=== PATIENT | female | born 1955 | race African-American/Black ===

== ENCOUNTER 2021-09-09 10:15 | Inpatient (IN) | payer MEDICARE, OTHER ==
[2021-09-09 12:10] VITALS: BMI 16.9
[2021-09-09] MEDS ORDERED: MAGNESIUM CITRATE 300 ML BOTTLE PO PRN (12:32)
[2021-09-09] MEDS ORDERED: ACETAMINOPHEN 325 MG TABLET (FP) PO PRN (12:32)
[2021-09-09] MEDS ORDERED: LOPERAMIDE HCL 2 MG CAPSULE PO PRN (12:32)
[2021-09-09] MEDS ORDERED: P-EPHED 60MG/TRIPROLIDI 2.5MG TABLET PO PRN (12:32)
[2021-09-09] MEDS ORDERED: NICOTINE 10 MG CARTRIDGE (INHALER) IH PRN (12:32)
[2021-09-09] MEDS ORDERED: MAGNESIUM HYDROX 2400MG/30ML ORAL SUSPENSION 30 ML CUP PO PRN (12:32)
[2021-09-09] MEDS ORDERED: MAG HYDROX/AL HYDROX/SIMETH 30 ML UNIT-DOSE CUP PO PRN (12:32)
[2021-09-09] MEDS ORDERED: guaiFENesin 200 MG/10 ML 10 ML UNIT-DOSE CUPS PO PRN (12:32)
[2021-09-09] MEDS ORDERED: amLODIPine BESYLATE 10 MG TABLET (FP) PO ONE (20:13)
[2021-09-09] MEDS: SENNOSIDES 8.6MG TABLET (FP) PO SCH (21:41)
[2021-09-09] MEDS: hydrOXYzine PAMOATE 25 MG CAPSULE (FP) PO SCH ×3 (21:41→22:19)
[2021-09-09] MEDS: THIAMINE HCL 100 MG TABLET (FP) PO SCH (21:41)
[2021-09-09] MEDS: MELATONIN 5 MG TABLETS PO SCH (21:41)
[2021-09-09] MEDS: ATORVASTATIN CA 10 MG TABLET (FP) PO SCH (21:44)
[2021-09-10] MEDS: hydrOXYzine PAMOATE 25 MG CAPSULE (FP) PO SCH ×3 (06:55→13:25)
[2021-09-10] MEDS ORDERED: methaDONE HCL 40 MG DISPERSABLE TABLET PO ONE (09:08)
[2021-09-10] MEDS: amLODIPine BESYLATE 10 MG TABLET (FP) PO SCH (10:16)
[2021-09-10] MEDS: ASPIRIN COATED 81 MG TABLET.EC PO SCH (10:16)
[2021-09-10] MEDS: PRENATAL VITAMINS W/ FOLIC ACID TABLET (FP) PO SCH (10:17)
[2021-09-10] MEDS: NICOTINE 7 MG/24 HOURS TOPICAL PATCH TD SCH (10:18)
[2021-09-10 12:26] LABS: CALCIUM 9.5 mg/dL (8.5-10.1)
[2021-09-10 12:27] LABS: ALBUMIN 3.6 g/dl (3.4-5.0); CO2 32 mmol/L (21-32); GLUCOSE,RANDOM 110 mg/dL (74-106)
[2021-09-10 12:30] LABS: ANION GAP 3 MMOL/L (8-16); CHLORIDE 107 mmol/L (98-107); CREATININE 0.9 mg/dL (0.55-1.3); SGOT/AST < 3 U/L (15-37); SGPT/ALT 13 U/L (13-61); SODIUM 142 mmol/L (136-145)
[2021-09-10 12:31] LABS: BILIRUBIN,TOTAL 0.3 mg/dL (0.2-1); TOT PROT 7.2 g/dl (6.4-8.2)
[2021-09-10 12:33] LABS: ALK PHOS 87 U/L (45-117)
[2021-09-10 12:53] LABS: SYPHILIS W/ RPR CONF NON-REACTIVE (NONREACTIVE)
[2021-09-10 13:20] LABS: HEMATOCRIT 36.2 % (32.4-45.2); HEMOGLOBIN 12.1 GM/dL (10.7-15.3); MCH 30.6 pg (25.7-33.7); MCHC 33.5 g/dl (32.0-36.0); MEAN CELL VOLUME 91.6 fl (80-96); MEAN PLT VOLUME 8.3 fl (7.5-11.1); PLATELET COUNT 161 10^3/uL (134-434); RBC 3.96 M/mm3 (3.60-5.2); RDW 14.4 % (11.6-15.6); WHITE BLOOD COUNT 4.6 K/mm3 (4.0-10.0)
[2021-09-10 21:45] LABS: EPI CELLS >36 /uL (0-25.1); HYALINE CASTS 1 /uL (0-3.1); URINE APPEARANCE CLOUDY; URINE BACTERIA 615 /uL (0-1359); URINE BILIRUBIN NEGATIVE (NEGATIVE); URINE COLOR YELLOW; URINE GLUCOSE (UA) NEGATIVE (NEGATIVE); URINE KETONE NEGATIVE (NEGATIVE); URINE LEUK ESTERASE TRACE (NEGATIVE); URINE NITRITE NEGATIVE (NEGATIVE); URINE PROTEIN NEGATIVE (NEGATIVE); URINE RBC 4 /uL (0-23.9); URINE UROBILINOGEN 0.2 mg/dL (0.2-1.0); URINE WBC 43 /uL (0-25.8)
[2021-09-10] MEDS: ATORVASTATIN CA 10 MG TABLET (FP) PO SCH (21:54)
[2021-09-10] MEDS: cloNIDine HCL 0.1 MG TABLET PO PRN (21:54)
[2021-09-10] MEDS: THIAMINE HCL 100 MG TABLET (FP) PO SCH (21:55)
[2021-09-10] MEDS: MELATONIN 5 MG TABLETS PO SCH (21:55)
[2021-09-10] MEDS: SENNOSIDES 8.6MG TABLET (FP) PO SCH (23:11)
[2021-09-11] MEDS: methaDONE HCL 40 MG DISPERSABLE TABLET PO SCH (06:28)
[2021-09-11] MEDS: amLODIPine BESYLATE 10 MG TABLET (FP) PO SCH (11:26)
[2021-09-11] MEDS: NICOTINE 7 MG/24 HOURS TOPICAL PATCH TD SCH (11:26)
[2021-09-11] MEDS: ASPIRIN COATED 81 MG TABLET.EC PO SCH (11:26)
[2021-09-11] MEDS: PRENATAL VITAMINS W/ FOLIC ACID TABLET (FP) PO SCH (11:27)
[2021-09-11] MEDS: MELATONIN 5 MG TABLETS PO SCH (21:09)
[2021-09-11] MEDS: THIAMINE HCL 100 MG TABLET (FP) PO SCH (21:09)
[2021-09-11] MEDS: ATORVASTATIN CA 10 MG TABLET (FP) PO SCH (21:09)
[2021-09-11] MEDS: SENNOSIDES 8.6MG TABLET (FP) PO SCH (22:14)
[2021-09-12] MEDS: methaDONE HCL 40 MG DISPERSABLE TABLET PO SCH (06:25)
[2021-09-12] MEDS: PRENATAL VITAMINS W/ FOLIC ACID TABLET (FP) PO SCH (10:20)
[2021-09-12] MEDS: ASPIRIN COATED 81 MG TABLET.EC PO SCH (10:20)
[2021-09-12] MEDS: NICOTINE 7 MG/24 HOURS TOPICAL PATCH TD SCH (10:20)
[2021-09-12] MEDS: amLODIPine BESYLATE 10 MG TABLET (FP) PO SCH (10:20)
[2021-09-12] MEDS: ATORVASTATIN CA 10 MG TABLET (FP) PO SCH (21:42)
[2021-09-12] MEDS: THIAMINE HCL 100 MG TABLET (FP) PO SCH (21:42)
[2021-09-12] MEDS: MELATONIN 5 MG TABLETS PO SCH (21:42)
[2021-09-12] MEDS: SENNOSIDES 8.6MG TABLET (FP) PO SCH (21:43)
[2021-09-13] MEDS: methaDONE HCL 40 MG DISPERSABLE TABLET PO SCH (06:26)
[2021-09-13] MEDS: PRENATAL VITAMINS W/ FOLIC ACID TABLET (FP) PO SCH (10:21)
[2021-09-13] MEDS: NICOTINE 7 MG/24 HOURS TOPICAL PATCH TD SCH (10:22)
[2021-09-13] MEDS: ASPIRIN COATED 81 MG TABLET.EC PO SCH (10:22)
[2021-09-13] MEDS: amLODIPine BESYLATE 10 MG TABLET (FP) PO SCH (10:22)
[2021-09-13] MEDS: NICOTINE POLACRILEX 2 MG GUM BUC PRN (10:23)
[2021-09-13] MEDS: IBUPROFEN 400 MG TABLET (FP) PO PRN (19:58)
[2021-09-13] MEDS: MELATONIN 5 MG TABLETS PO SCH (21:38)
[2021-09-13] MEDS: THIAMINE HCL 100 MG TABLET (FP) PO SCH (21:38)
[2021-09-13] MEDS: SENNOSIDES 8.6MG TABLET (FP) PO SCH (21:38)
[2021-09-13] MEDS: ATORVASTATIN CA 10 MG TABLET (FP) PO SCH (21:38)
[2021-09-13] MEDS: cloNIDine HCL 0.1 MG TABLET PO PRN (21:39)
[2021-09-14] MEDS: methaDONE HCL 40 MG DISPERSABLE TABLET PO SCH (06:09)
[2021-09-14] MEDS: PRENATAL VITAMINS W/ FOLIC ACID TABLET (FP) PO SCH (10:26)
[2021-09-14] MEDS: ASPIRIN COATED 81 MG TABLET.EC PO SCH (10:26)
[2021-09-14] MEDS: NICOTINE 7 MG/24 HOURS TOPICAL PATCH TD SCH (10:26)
[2021-09-14] MEDS: amLODIPine BESYLATE 10 MG TABLET (FP) PO SCH (10:26)
[2021-09-14] MEDS: NICOTINE POLACRILEX 2 MG GUM BUC PRN (10:28)
[2021-09-14] MEDS: IBUPROFEN 400 MG TABLET (FP) PO PRN (18:15)
[2021-09-14] MEDS: ATORVASTATIN CA 10 MG TABLET (FP) PO SCH (21:39)
[2021-09-14] MEDS: SENNOSIDES 8.6MG TABLET (FP) PO SCH (21:39)
[2021-09-14] MEDS: THIAMINE HCL 100 MG TABLET (FP) PO SCH (21:39)
[2021-09-14] MEDS: MELATONIN 5 MG TABLETS PO SCH (21:40)
[2021-09-14] MEDS: hydrOXYzine PAMOATE 25 MG CAPSULE (FP) PO PRN (22:56)
[2021-09-15] MEDS: methaDONE HCL 40 MG DISPERSABLE TABLET PO SCH (06:29)
[2021-09-15] MEDS: cloNIDine HCL 0.1 MG TABLET PO PRN (06:31)
[2021-09-15] MEDS: NICOTINE 7 MG/24 HOURS TOPICAL PATCH TD SCH (09:39)
[2021-09-15] MEDS: ASPIRIN COATED 81 MG TABLET.EC PO SCH (09:39)
[2021-09-15] MEDS: NICOTINE POLACRILEX 2 MG GUM BUC PRN (09:40)
[2021-09-15] MEDS: PRENATAL VITAMINS W/ FOLIC ACID TABLET (FP) PO SCH (09:40)
[2021-09-15] MEDS: amLODIPine BESYLATE 10 MG TABLET (FP) PO SCH (14:41)
[2021-09-15] MEDS: SENNOSIDES 8.6MG TABLET (FP) PO SCH (21:44)
[2021-09-15] MEDS: THIAMINE HCL 100 MG TABLET (FP) PO SCH (21:44)
[2021-09-15] MEDS: ATORVASTATIN CA 10 MG TABLET (FP) PO SCH (21:44)
[2021-09-15] MEDS: MELATONIN 5 MG TABLETS PO SCH (21:44)
[2021-09-15] MEDS: IBUPROFEN 400 MG TABLET (FP) PO PRN (21:46)
[2021-09-16] MEDS: methaDONE HCL 40 MG DISPERSABLE TABLET PO SCH (06:20)
[2021-09-16] MEDS: PRENATAL VITAMINS W/ FOLIC ACID TABLET (FP) PO SCH (10:43)
[2021-09-16] MEDS: ASPIRIN COATED 81 MG TABLET.EC PO SCH (10:43)
[2021-09-16] MEDS: NICOTINE 7 MG/24 HOURS TOPICAL PATCH TD SCH (10:44)
[2021-09-16] MEDS: amLODIPine BESYLATE 10 MG TABLET (FP) PO SCH (13:51)
[2021-09-16] MEDS: MELATONIN 5 MG TABLETS PO SCH (21:11)
[2021-09-16] MEDS: SENNOSIDES 8.6MG TABLET (FP) PO SCH (21:11)
[2021-09-16] MEDS: ATORVASTATIN CA 10 MG TABLET (FP) PO SCH (21:11)
[2021-09-16] MEDS: THIAMINE HCL 100 MG TABLET (FP) PO SCH (21:13)
[2021-09-17] MEDS: cloNIDine HCL 0.1 MG TABLET PO PRN (06:15)
[2021-09-17] MEDS: methaDONE HCL 40 MG DISPERSABLE TABLET PO SCH (06:16)
[2021-09-17] MEDS: PRENATAL VITAMINS W/ FOLIC ACID TABLET (FP) PO SCH (10:23)
[2021-09-17] MEDS: ASPIRIN COATED 81 MG TABLET.EC PO SCH (10:24)
[2021-09-17] MEDS: NICOTINE 7 MG/24 HOURS TOPICAL PATCH TD SCH (10:24)
[2021-09-17] MEDS: amLODIPine BESYLATE 10 MG TABLET (FP) PO SCH (14:27)
[2021-09-17] MEDS: THIAMINE HCL 100 MG TABLET (FP) PO SCH (21:12)
[2021-09-17] MEDS: ATORVASTATIN CA 10 MG TABLET (FP) PO SCH (21:12)
[2021-09-17] MEDS: SENNOSIDES 8.6MG TABLET (FP) PO SCH (21:12)
[2021-09-17] MEDS: MELATONIN 5 MG TABLETS PO SCH (21:12)
[2021-09-18] MEDS: methaDONE HCL 40 MG DISPERSABLE TABLET PO SCH (06:10)
[2021-09-18] MEDS: NICOTINE 7 MG/24 HOURS TOPICAL PATCH TD SCH (09:54)
[2021-09-18] MEDS: amLODIPine BESYLATE 10 MG TABLET (FP) PO SCH (09:54)
[2021-09-18] MEDS: ASPIRIN COATED 81 MG TABLET.EC PO SCH (09:54)
[2021-09-18] MEDS: PRENATAL VITAMINS W/ FOLIC ACID TABLET (FP) PO SCH (09:54)
[2021-09-18] MEDS: NICOTINE POLACRILEX 2 MG GUM BUC PRN (09:55)
[2021-09-18] MEDS: ATORVASTATIN CA 10 MG TABLET (FP) PO SCH (21:11)
[2021-09-18] MEDS: SENNOSIDES 8.6MG TABLET (FP) PO SCH (21:11)
[2021-09-18] MEDS: IBUPROFEN 400 MG TABLET (FP) PO PRN (21:11)
[2021-09-18] MEDS: THIAMINE HCL 100 MG TABLET (FP) PO SCH (21:11)
[2021-09-18] MEDS: hydrOXYzine PAMOATE 25 MG CAPSULE (FP) PO PRN (21:11)
[2021-09-18] MEDS: MELATONIN 5 MG TABLETS PO SCH (21:57)
[2021-09-19] MEDS: methaDONE HCL 40 MG DISPERSABLE TABLET PO SCH (06:13)
[2021-09-19] MEDS: PRENATAL VITAMINS W/ FOLIC ACID TABLET (FP) PO SCH (10:18)
[2021-09-19] MEDS: amLODIPine BESYLATE 10 MG TABLET (FP) PO SCH (10:18)
[2021-09-19] MEDS: ASPIRIN COATED 81 MG TABLET.EC PO SCH (10:18)
[2021-09-19] MEDS: NICOTINE 7 MG/24 HOURS TOPICAL PATCH TD SCH (10:19)
[2021-09-19] MEDS: MELATONIN 5 MG TABLETS PO SCH (21:08)
[2021-09-19] MEDS: SENNOSIDES 8.6MG TABLET (FP) PO SCH (21:08)
[2021-09-19] MEDS: hydrOXYzine PAMOATE 25 MG CAPSULE (FP) PO PRN (21:08)
[2021-09-19] MEDS: ATORVASTATIN CA 10 MG TABLET (FP) PO SCH (21:08)
[2021-09-19] MEDS: THIAMINE HCL 100 MG TABLET (FP) PO SCH (21:08)
[2021-09-19] MEDS: IBUPROFEN 400 MG TABLET (FP) PO PRN (21:09)
[2021-09-20] MEDS: methaDONE HCL 40 MG DISPERSABLE TABLET PO SCH (06:11)
[2021-09-20] MEDS: cloNIDine HCL 0.1 MG TABLET PO PRN (06:12)
[2021-09-20] MEDS: NICOTINE 7 MG/24 HOURS TOPICAL PATCH TD SCH (09:50)
[2021-09-20] MEDS: PRENATAL VITAMINS W/ FOLIC ACID TABLET (FP) PO SCH (09:50)
[2021-09-20] MEDS: ASPIRIN COATED 81 MG TABLET.EC PO SCH (09:50)
[2021-09-20] MEDS: NICOTINE POLACRILEX 2 MG GUM BUC PRN (09:52)
[2021-09-20] MEDS: amLODIPine BESYLATE 10 MG TABLET (FP) PO SCH ×2 (09:52→15:59)
[2021-09-20] MEDS: SENNOSIDES 8.6MG TABLET (FP) PO SCH (21:10)
[2021-09-20] MEDS: MELATONIN 5 MG TABLETS PO SCH (21:10)
[2021-09-20] MEDS: THIAMINE HCL 100 MG TABLET (FP) PO SCH (21:10)
[2021-09-20] MEDS: ATORVASTATIN CA 10 MG TABLET (FP) PO SCH (21:10)
[2021-09-21] MEDS: cloNIDine HCL 0.1 MG TABLET PO PRN (06:07)
[2021-09-21] MEDS: methaDONE HCL 40 MG DISPERSABLE TABLET PO SCH (06:07)
[2021-09-21] MEDS: NICOTINE 7 MG/24 HOURS TOPICAL PATCH TD SCH (10:21)
[2021-09-21] MEDS: PRENATAL VITAMINS W/ FOLIC ACID TABLET (FP) PO SCH (10:21)
[2021-09-21] MEDS: ASPIRIN COATED 81 MG TABLET.EC PO SCH (10:21)
[2021-09-21] MEDS: NICOTINE POLACRILEX 2 MG GUM BUC PRN (10:22)
[2021-09-21] MEDS: amLODIPine BESYLATE 10 MG TABLET (FP) PO SCH (10:30)
[2021-09-21] MEDS: MELATONIN 5 MG TABLETS PO SCH (21:11)
[2021-09-21] MEDS: THIAMINE HCL 100 MG TABLET (FP) PO SCH (21:11)
[2021-09-21] MEDS: SENNOSIDES 8.6MG TABLET (FP) PO SCH (21:11)
[2021-09-21] MEDS: ATORVASTATIN CA 10 MG TABLET (FP) PO SCH (21:11)
[2021-09-21] MEDS: hydrOXYzine PAMOATE 25 MG CAPSULE (FP) PO PRN (21:12)
[2021-09-22] MEDS: methaDONE HCL 40 MG DISPERSABLE TABLET PO SCH (06:19)
[2021-09-22] MEDS: PRENATAL VITAMINS W/ FOLIC ACID TABLET (FP) PO SCH (09:43)
[2021-09-22] MEDS: ASPIRIN COATED 81 MG TABLET.EC PO SCH (09:43)
[2021-09-22] MEDS: NICOTINE 7 MG/24 HOURS TOPICAL PATCH TD SCH (09:43)
[2021-09-22] MEDS: amLODIPine BESYLATE 10 MG TABLET (FP) PO SCH (09:44)
[2021-09-22] MEDS: MELATONIN 5 MG TABLETS PO SCH (21:26)
[2021-09-22] MEDS: THIAMINE HCL 100 MG TABLET (FP) PO SCH (21:26)
[2021-09-22] MEDS: ATORVASTATIN CA 10 MG TABLET (FP) PO SCH (21:26)
[2021-09-22] MEDS: hydrOXYzine PAMOATE 25 MG CAPSULE (FP) PO PRN (21:27)
[2021-09-22] MEDS: SENNOSIDES 8.6MG TABLET (FP) PO SCH (23:31)
[2021-09-23] MEDS: methaDONE HCL 40 MG DISPERSABLE TABLET PO SCH (06:39)
[2021-09-23 07:31] VITALS: TEMP 97.8
[2021-09-23] MEDS: PRENATAL VITAMINS W/ FOLIC ACID TABLET (FP) PO SCH (10:13)
[2021-09-23] MEDS: NICOTINE 7 MG/24 HOURS TOPICAL PATCH TD SCH (10:14)
[2021-09-23] MEDS: amLODIPine BESYLATE 10 MG TABLET (FP) PO SCH (10:14)
[2021-09-23] MEDS: ASPIRIN COATED 81 MG TABLET.EC PO SCH (10:14)
[2021-09-23] MEDS: NICOTINE POLACRILEX 2 MG GUM BUC PRN (10:16)
[2021-09-23 10:21] VITALS: BP 109/54; PULSE 70
== END 2021-09-23 14:25 | disposition home or self-care (01) | DRG 895 ==
LOC: YASAS 10:15 → Y5N 18:02
PROVIDERS: ADMIT Allergy & Immunology; ATTEND Allergy & Immunology
PROC: HZ42ZZZ Group Counseling for Substance Abuse Treatment, Cognitive-Behavioral (ICD-10-PCS; principal; 2021-09-09)
DX: F11.20 Opioid dependence, uncomplicated (principal); F14.20 Cocaine dependence, uncomplicated; I69.854 Hemiplegia and hemiparesis following other cerebrovascular disease affecting left non-dominant side; Z68.1 Body mass index [BMI] 19.9 or less, adult; F13.10 Sedative, hypnotic or anxiolytic abuse, uncomplicated; F17.210 Nicotine dependence, cigarettes, uncomplicated; F19.24 Other psychoactive substance dependence with psychoactive substance-induced mood disorder; F41.9 Anxiety disorder, unspecified; F32.A Depression, unspecified; I10 Essential (primary) hypertension; J45.909 Unspecified asthma, uncomplicated; M54.50 Low back pain, unspecified; G89.29 Other chronic pain; M19.90 Unspecified osteoarthritis, unspecified site; R63.4 Abnormal weight loss; Z99.89 Dependence on other enabling machines and devices
CPT/HCPCS: 36415; 80053; 81003; 85027; 86780; 86803; 87522; C9803; J0735; U0003; U0005